=== PATIENT | male | born 1945 | race Caucasian/White ===

== ENCOUNTER 2018-04-13 12:12 | Day surgery (SDC) | payer MEDICARE, OTHER ==
[~2018-04-13] VITALS: Ht 175.3 cm; Wt 81.5 kg
[2018-04-13] VITALS (11 sets, daily range): BP systolic 107–142; BP diastolic 53–89; PULSE 92–101; TEMP 98.2–98.8
[2018-04-13] MEDS ORDERED: MULTI VITAMINS1 TAB PO (12:38)
[2018-04-13] MEDS ORDERED: ASPIRIN 81M81 MG/TA2 PO (12:38)
[2018-04-13] MEDS ORDERED: PRINIVIL5 MG PO (12:38)
[2018-04-13] MEDS ORDERED: CALCIUM CARBON650 M2 PO (12:38)
[2018-04-13] MEDS ORDERED: FIBER0.52 GM PO (12:39)
[2018-04-13] MEDS ORDERED: ALEVE 220MG220 MG PO (12:39)
[2018-04-13] MEDS ORDERED: CLARITIN 1010 MG/TAB PO (12:39)
[2018-04-13] MEDS ORDERED: VITAMINC1000TA PO (12:39)
[2018-04-13] MEDS ORDERED: FLONASEALLERGY NS (12:40)
[2018-04-13] MEDS ORDERED: VOLTAREN GEL 1%1 TU TP (12:40)
--- NOTE | 2018-04-13 13:30 | NUR ---
Patient denies any needs at this time. Resting comfortably in room.
--- NOTE | 2018-04-13 14:23 | NUR ---
Patient to the OR at this time.
[2018-04-13] MEDS ORDERED: MOTRIN 600600 MG/TAB PO (19:11)
[2018-04-13] MEDS ORDERED: COLACE 100100 MG/CAP PO (19:11)
[2018-04-13] MEDS ORDERED: DILAUDID 2MG TAB2 MG PO (19:11)
--- NOTE | 2018-04-13 19:35 | NUR ---
Patient to room 346 via hospital bed. Alert and oriented x 4,slightly drowsy. Report received from Reva ESCAMILLA. 3 lap sites to abdomin approximated without redness or drainage. Reports 3/10 pain with movement and morphine 2mg given SIV. Following patient reported dizziness that subsided "room spinning". See vitals. Brother and female visitor into see patient. Patient drinking water and takes 2 jellos without nausea. Reports pain abdomin decreased to 1/10.
--- NOTE | 2018-04-13 22:34 | NUR ---
Reports abdominal discomfort when sits up 2-04/16 and dilaudid offered and given 2mg po. Explained to patient and brother that patient does have discharge orders and may discharge once voids. Patient states he lives home alone and just had 5 hour surgery and would feel more comfortable staying in hospital overnight. Dr. Sood marble mason and notified of above. New order received that patient may stay overnight.
--- NOTE | 2018-04-13 22:50 | NUR ---
Patient given sandwich box.
[2018-04-14 00:12] VITALS: BP 122/60; PULSE 97; TEMP 98.7
--- NOTE | 2018-04-14 03:00 | NUR ---
Patient rests with eyes closed. Respirations with ease.
[2018-04-14 05:06] VITALS: BP 122/69; PULSE 68; TEMP 98.7
--- NOTE | 2018-04-14 05:43 | NUR ---
Patient has been resting with eyes closed. Respirations with ease. Declined getting up and used urinal earlier x 1.
--- NOTE | 2018-04-14 05:55 | NUR ---
Patient awakened. Denies need for pain med at this time.
[2018-04-14 07:30] VITALS: BP 124/65; PULSE 88; TEMP 98.1
--- NOTE | 2018-04-14 08:30 | NUR ---
Plan of care discussed with patient for discharge today. Teaching done on ambulating prior to discharge. Verbalizes understanding. C/O pain described as constant ache with sharp intermittent pain with movement. Pain medications given PO, will reassess. Encouarged to call for concerns. Verbalizes understanding. WIll monitor.
--- NOTE | 2018-04-14 10:00 | NUR ---
Discharge instructions given both verbal and handwritten. Discussed f/u appointment, s/s of infection, home care and home medications. Denies questions or concerns. Prescriptions given to patient. Escorted off floor in wheelchair with no s/s of distress noted.
--- NOTE | 2018-04-14 10:42 | NUR ---
SW unable to meet with patient before discharge.
== END 2018-04-14 10:15 | disposition home or self-care (01) ==
LOC: SDCO 12:12 → SURG 19:58 → SDCO 04-14 10:15
DX: K41.20 Bilateral femoral hernia, without obstruction or gangrene, not specified as recurrent (principal); Z79.82 Long term (current) use of aspirin; Z79.899 Other long term (current) drug therapy; I10 Essential (primary) hypertension; Z82.3 Family history of stroke; Z80.3 Family history of malignant neoplasm of breast; Z88.0 Allergy status to penicillin; Z90.49 Acquired absence of other specified parts of digestive tract; Z87.891 Personal history of nicotine dependence
CPT/HCPCS: OP; A4314; C1781; J0690; J1100; J2270; J2405; J2704; J3010; J7120